=== PATIENT | male | born 1990 | race Caucasian/White ===

== ENCOUNTER 2020-08-08 08:39 | Emergency (ER) | payer OTHER ==
[2020-08-08 09:34] LABS: BASOPHIL 0.4 % (0-2); EOSINOPHIL 1.3 % (0-5); HCT 46.1 % (42.0-52.0); HGB 15.4 g/dl (13.2-18.0); LYMPHOCYTE 31.2 % (15-48); MCH 28.5 pg (25.0-31.0); MCHC 33.4 g/dL (32.0-36.0); MCV 85.2 fL (78.0-100.0); MONOCYTE 9.4 % (0-12); NRBC 0; PLT 201 K/uL (150-400); RBC 5.41 M/uL (4.70-6.00); RDW 12.5 % (11.5-14.0); WBC 6.7 K/uL (4.0-10.5)
[2020-08-08 09:47] LABS: BUN/CREAT RATIO (CALC) 16.1 RATIO; CREATININE 0.87 mg/dL (0.67-1.17); POTASSIUM 4.5 mmol/L (3.5-5.1)
[2020-08-08 09:55] LABS: CKMB 0.7 ng/mL (0.0-3.6)
[2020-08-08] MEDS ORDERED: NAPROXEN500 MG PO (10:38)
== END 2020-08-08 10:58 | disposition home or self-care (01) ==
LOC: FER 08:39
PROVIDERS: Emergency Medicine
DX: R07.89 Other chest pain (principal); R06.02 Shortness of breath; Z88.8 Allergy status to other drugs, medicaments and biological substances
CPT/HCPCS: 36415; 71046; 80048; 82553; 84484; 85025; 93005